=== PATIENT | female | born 1960 | race Caucasian/White ===

== ENCOUNTER 2017-10-31 06:08 | Inpatient (IN) ==
[2017-10-28 11:23] LABS: Basophils # 0.1 10*3/uL (0.0-0.2); Basophils % 0.7 % (0.0-0.8); Eosinophils # 0.2 10*3/uL (0.0-0.87); Eosinophils % 3.1 % (0.00-10.9); Hematocrit 36.3 VOL% (35.7-47.0); Hemoglobin 11.8 GM/DL (12.0-16.0); Immature Granulocytes % 0.7 %; Immature Granulocytes Absolute 0.05 #; Lymphocytes # 2.3 10*3/uL (1.4-4.0); Lymphocytes % 31.3 % (21.3-54.2); Mean Corpuscular HGB Conc 32.5 GM/DL (32-36); Mean Corpuscular Hemoglobin 29 PG (27-34); Mean Corpuscular Volume 89.9 FL (87-102); Monocytes # 0.5 10*3/uL (0.11-0.8); Monocytes % 6.1 % (1.7-12.7); Neutrophils # 4.3 10*3/uL (1.4-7.4); Neutrophils % 58.1 % (38.7-73.9); Platelet Count 304 T/CUMM (130-400); Red Blood Count 4.04 MC/CUMM (3.8-5.5); Red Cell Distribution Width 12.2 % (9.3-17.3); White Blood Count 7.4 T/CUMM (4-12)
[2017-10-28 11:25] LABS: Apearance,Urine CLEAR (Clear); Bilirubin,Urine Negative (Negative); Blood, Urine Negative (Negative); Glucose,Urine (UA) Negative (Negative); Hyaline Casts,Urine 4 /LPF (0-3); Ketones,Urine 5 mg/dL (Negative); Mucus,Urine Occasional /LPF (Occasional); Nitrite,Urine Negative (Negative); Protein,Urine Negative; RBC,Urine 3 /HPF (0-4); Squamous Epithelial Cell,Urine Occasional /HPF (0-10); Urine Color Yellow (Yellow); Urine Specific Gravity 1.015 (1.001-1.035); WBC,Urine <1 /HPF (0-6)
[2017-10-28 11:32] LABS: INR 0.9; PT Patient Result 9.9 SECS; Partial Thromboplastin Time 27.5 SECS (0-40)
[2017-10-28 11:53] LABS: Albumin 3.8 G/DL (3.4-5.0); Bilirubin,Total 0.4 MG/DL (0.2-1.0); Calcium 8.9 MG/DL (8.5-10.1); Osmolality,Calculated 272.8 MOS/KG (273-304); Total Protein 6.9 G/DL (6.4-8.3)
[~2017-10-31 06:08] MED LIST: DIAZEPAM 5 MG TABLET PO ONE; FAMOTIDINE 20 MG TABLET PO ONE; IPRATROPIUM 500 MCG/2.5 ML NEB RESP TX ONE; VANCOMYCIN INJ 1,000 MG in SODIUM CHLORIDE 0.9% 250 ML IV ONE; ceFAZolin 1,000 MG in SYRINGE 1 EACH IV ONE
[2017-10-31] MEDS ORDERED: DIAZEPAM 5 MG TABLET ONE (06:30)
[2017-10-31] MEDS ORDERED: VANCOMYCIN 1,000 MG VIAL ONE (06:30)
[2017-10-31] MEDS ORDERED: ceFAZolin 1,000 MG VIAL ONE (06:30)
[2017-10-31] MEDS ORDERED: FAMOTIDINE 20 MG TABLET ONE (06:31)
[2017-10-31] MEDS ORDERED: BACITRACIN OINT 0.9 GM PACK TOP ONE (06:39)
[2017-10-31] MEDS ORDERED: TRANEXAMIC ACID 1,000 MG/10 ML VIAL IV ONE (06:40)
[2017-10-31] MEDS ORDERED: LACTATED RINGERS 1,000 ML IV SCH (07:00)
[2017-10-31] MEDS ORDERED: ALBUTEROL 2.5 MG/3 ML NEB RESP TX PRN (08:49)
[2017-10-31] MEDS ORDERED: SIMETHICONE 125 MG PO PRN (08:49)
[2017-10-31] MEDS ORDERED: oxyCODONE IR 5 MG TABLET PO PRN (08:50)
[2017-10-31] MEDS ORDERED: MAGNESIUM HYDROXIDE SUSP 30 ML UDCUP PO PRN (08:50)
[2017-10-31] MEDS ORDERED: HYDROmorphone 2 MG/1 ML VIAL IV PRN (08:50)
[2017-10-31] MEDS ORDERED: diphenhydrAMINE CAP 25 MG CAPSULE PO PRN (08:50)
[2017-10-31] MEDS ORDERED: ONDANSETRON 4 MG/2 ML VIAL IV PRN (08:50)
[2017-10-31] MEDS ORDERED: [UNRECOGNIZED DRUG - OTHER] PO SCH (09:00)
[2017-10-31] MEDS ORDERED: AMPHETAMINE PO SCH (09:00)
[2017-10-31] MEDS ORDERED: ASCORBATE CALCIUM PO SCH (09:00)
[2017-10-31] MEDS ORDERED: BIOFLAVONOID PO SCH (09:00)
[2017-10-31] MEDS ORDERED: DIGESTIVE ADVANTAGE PO SCH (09:00)
[2017-10-31] MEDS ORDERED: DEXTROAMPHETAMINE PO SCH (09:00)
[2017-10-31 09:07] LABS: Apearance,Urine CLEAR (Clear); Bilirubin,Urine Negative (Negative); Blood, Urine Negative (Negative); Glucose,Urine (UA) Negative (Negative); Ketones,Urine Negative (Negative); Nitrite,Urine Negative (Negative); Protein,Urine Negative; RBC,Urine 2 /HPF (0-4); Urine Color Yellow (Yellow); Urine Urobilinogen < 2.0 EU/DL (0.2-1.0); WBC,Urine <1 /HPF (0-6)
[2017-10-31] MEDS ORDERED: INFLUENZA VIRUS VACCINE 0.5 ML SYRINGE IM ONE (10:21)
[2017-10-31] MEDS: KETOROLAC 30 MG/1 ML VIAL IV SCH ×3 (11:18→22:49)
[2017-10-31] MEDS: HYDROmorphone 2 MG/1 ML VIAL IV PRN ×3 (11:19→20:53)
[2017-10-31] MEDS: FLUTICASONE 50 MCG NASAL SPRAY 16 GM BOTTLE BOTH NARES SCH ×2 (11:25→17:08)
[2017-10-31] MEDS: cycloSPORINE OPH EMUL 1 VIAL BOTH EYES SCH (11:26)
[2017-10-31] MEDS: GABAPENTIN 300 MG CAPSULE PO SCH ×2 (11:34→20:54)
[2017-10-31] MEDS: DOCUSATE SODIUM 100 MG CAPSULE PO SCH ×2 (11:34→20:54)
[2017-10-31] MEDS: PANTOPRAZOLE 40 MG TABLET PO SCH (11:34)
[2017-10-31] MEDS: FLUoxetine 20 MG CAPSULE PO SCH (11:34)
[2017-10-31] MEDS ORDERED: MIDAZOLAM 2 MG/2 ML VIAL ONE (12:02)
[2017-10-31] MEDS ORDERED: PROPOFOL 200 MG/20 ML VIAL IV ONE (12:02)
[2017-10-31] MEDS ORDERED: fentaNYL 100 MCG/2 ML VIAL ONE (12:03)
[2017-10-31] MEDS ORDERED: ONDANSETRON 4 MG/2 ML VIAL ONE (12:03)
[2017-10-31] MEDS: LACTATED RINGERS 1,000 ML IV SCH ×2 (13:06→19:07)
[2017-10-31] MEDS: ACETAMINOPHEN 500 MG TABLET PO SCH ×2 (15:42→20:54)
[2017-10-31] MEDS: SULFAMETHOX/TRIMETHOPRIM 800-160 MG TABLET PO SCH ×2 (15:43→20:54)
[2017-10-31] MEDS: ceFAZolin 1,000 MG in SYRINGE 1 EACH IV SCH ×2 (15:46→22:48)
[2017-10-31] MEDS: NYSTATIN 500,000 UNIT/5 ML UDCUP SWISH/SWAL SCH ×3 (19:50→22:48)
[2017-10-31] MEDS: ZALEPLON 5 MG CAPSULE PO PRN (22:55)
[2017-11-01] MEDS: oxyCODONE IR 5 MG TABLET PO PRN ×3 (00:15→10:15)
[2017-11-01] MEDS: HYDROmorphone 2 MG/1 ML VIAL IV PRN ×2 (01:34→15:07)
[2017-11-01] MEDS: ACETAMINOPHEN 500 MG TABLET PO SCH ×2 (01:34→10:19)
[2017-11-01 04:21] LABS: Basophils % 0.4 % (0.0-0.8); Eosinophils # 0.3 10*3/uL (0.0-0.87); Eosinophils % 4.1 % (0.00-10.9); Hematocrit 28.1 VOL% (35.7-47.0); Hemoglobin 8.7 GM/DL (12.0-16.0); Immature Granulocytes % 0.4 %; Immature Granulocytes Absolute 0.03 #; Lymphocytes # 2.4 10*3/uL (1.4-4.0); Lymphocytes % 34.1 % (21.3-54.2); Mean Corpuscular Hemoglobin 28 PG (27-34); Mean Corpuscular Volume 91.8 FL (87-102); Mean Platelet Volume 8.2 FL (9.6-12.0); Monocytes # 0.4 10*3/uL (0.11-0.8); Monocytes % 5.8 % (1.7-12.7); Neutrophils # 3.8 10*3/uL (1.4-7.4); Neutrophils % 55.2 % (38.7-73.9); Platelet Count 253 T/CUMM (130-400); Red Blood Count 3.06 MC/CUMM (3.8-5.5); Red Cell Distribution Width 12.6 % (9.3-17.3); White Blood Count 6.9 T/CUMM (4-12)
[2017-11-01 04:55] LABS: Osmolality,Calculated 282.1 MOS/KG (273-304); Potassium 4.4 MMOL/L (3.5-5.1)
[2017-11-01 05:02] LABS: Troponin I Only < 0.015 NG/ML (0.00-0.045)
[2017-11-01] MEDS: KETOROLAC 30 MG/1 ML VIAL IV SCH (05:15)
[2017-11-01] MEDS: LACTATED RINGERS 1,000 ML IV SCH (05:15)
[2017-11-01] MEDS: FONDAPARINUX 2.5 MG/0.5 ML SYRINGE SUBCUT SCH (05:15)
[2017-11-01] MEDS: SULFAMETHOX/TRIMETHOPRIM 800-160 MG TABLET PO SCH ×2 (10:20→21:46)
[2017-11-01] MEDS: DOCUSATE SODIUM 100 MG CAPSULE PO SCH ×2 (10:22→21:46)
[2017-11-01] MEDS: GABAPENTIN 300 MG CAPSULE PO SCH ×2 (10:24→21:46)
[2017-11-01] MEDS: PANTOPRAZOLE 40 MG TABLET PO SCH (10:24)
[2017-11-01] MEDS: FLUoxetine 20 MG CAPSULE PO SCH (10:25)
[2017-11-01] MEDS: NYSTATIN 500,000 UNIT/5 ML UDCUP SWISH/SWAL SCH ×4 (10:27→21:46)
[2017-11-01] MEDS: FLUTICASONE 50 MCG NASAL SPRAY 16 GM BOTTLE BOTH NARES SCH (10:27)
[2017-11-01] MEDS: cycloSPORINE OPH EMUL 1 VIAL BOTH EYES SCH (10:31)
[2017-11-01] MEDS: CELECOXIB 200 MG CAPSULE PO SCH (15:07)
[2017-11-01] MEDS: METHOCARBAMOL 750 MG TABLET PO SCH ×2 (17:13→21:46)
[2017-11-01] MEDS: ZALEPLON 5 MG CAPSULE PO PRN (21:46)
[2017-11-02] MEDS: FONDAPARINUX 2.5 MG/0.5 ML SYRINGE SUBCUT SCH (05:50)
[2017-11-02 06:21] LABS: Basophils % 0.2 % (0.0-0.8); Eosinophils # 0.3 10*3/uL (0.0-0.87); Eosinophils % 3.3 % (0.00-10.9); Hematocrit 28.9 VOL% (35.7-47.0); Hemoglobin 9.1 GM/DL (12.0-16.0); Immature Granulocytes % 0.7 %; Immature Granulocytes Absolute 0.06 #; Lymphocytes # 2.2 10*3/uL (1.4-4.0); Lymphocytes % 24.5 % (21.3-54.2); Mean Corpuscular HGB Conc 31.5 GM/DL (32-36); Mean Corpuscular Hemoglobin 29 PG (27-34); Mean Corpuscular Volume 91.5 FL (87-102); Mean Platelet Volume 8.2 FL (9.6-12.0); Monocytes # 0.5 10*3/uL (0.11-0.8); Monocytes % 6.1 % (1.7-12.7); Neutrophils # 5.8 10*3/uL (1.4-7.4); Neutrophils % 65.2 % (38.7-73.9); Platelet Count 279 T/CUMM (130-400); Red Blood Count 3.16 MC/CUMM (3.8-5.5); Red Cell Distribution Width 12.4 % (9.3-17.3); White Blood Count 8.8 T/CUMM (4-12)
[2017-11-02] MEDS: FLUoxetine 20 MG CAPSULE PO SCH (10:41)
[2017-11-02] MEDS: PANTOPRAZOLE 40 MG TABLET PO SCH (10:41)
[2017-11-02] MEDS: CELECOXIB 200 MG CAPSULE PO SCH (10:41)
[2017-11-02] MEDS: GABAPENTIN 300 MG CAPSULE PO SCH (10:42)
[2017-11-02] MEDS: METHOCARBAMOL 750 MG TABLET PO SCH (10:43)
[2017-11-02] MEDS: SULFAMETHOX/TRIMETHOPRIM 800-160 MG TABLET PO SCH (10:43)
[2017-11-02] MEDS: DOCUSATE SODIUM 100 MG CAPSULE PO SCH (10:43)
[2017-11-02] MEDS: NYSTATIN 500,000 UNIT/5 ML UDCUP SWISH/SWAL SCH (10:44)
[2017-11-02] MEDS: FLUTICASONE 50 MCG NASAL SPRAY 16 GM BOTTLE BOTH NARES SCH (10:45)
[2017-11-02] MEDS: cycloSPORINE OPH EMUL 1 VIAL BOTH EYES SCH (10:45)
[2017-11-02 11:27] VITALS: BP 115/65
== END 2017-11-02 13:32 | disposition home health service (06) | DRG 470 ==
LOC: N.SDS 06:08 → N.SDSINP 06:10 → EDSTATUS 07:30 → N.3E 08:33
PROVIDERS: ADMIT Orthopaedic Surgery; ATTEND Orthopaedic Surgery

== ENCOUNTER 2018-03-08 05:41 | Inpatient (IN) ==
[2018-03-01 11:12] LABS: Apearance,Urine CLEAR (Clear); Bilirubin,Urine Negative (Negative); Blood, Urine Negative (Negative); Glucose,Urine (UA) Negative (Negative); Ketones,Urine Negative (Negative); Mucus,Urine Occasional /LPF (Occasional); Nitrite,Urine Negative (Negative); Protein,Urine Negative; Squamous Epithelial Cell,Urine Occasional /HPF (0-10); Urine Color Straw (Yellow); Urine Specific Gravity 1.003 (1.001-1.035); Urine Urobilinogen < 2.0 EU/DL (0.2-1.0)
[2018-03-01 11:12] LABS: Basophils # 0.1 10*3/uL (0.0-0.2); Basophils % 0.9 % (0.0-0.8); Eosinophils # 0.2 10*3/uL (0.0-0.87); Eosinophils % 2.9 % (0.00-10.9); Hematocrit 36.2 VOL% (35.7-47.0); Hemoglobin 11.5 GM/DL (12.0-16.0); Immature Granulocytes % 0.3 %; Immature Granulocytes Absolute 0.02 #; Lymphocytes # 2.7 10*3/uL (1.4-4.0); Lymphocytes % 35.5 % (21.3-54.2); Mean Corpuscular HGB Conc 31.8 GM/DL (32-36); Mean Corpuscular Hemoglobin 28 PG (27-34); Mean Corpuscular Volume 86.6 FL (87-102); Mean Platelet Volume 8.4 FL (9.6-12.0); Monocytes # 0.4 10*3/uL (0.11-0.8); Monocytes % 5.5 % (1.7-12.7); Neutrophils # 4.2 10*3/uL (1.4-7.4); Neutrophils % 54.9 % (38.7-73.9); Platelet Count 297 T/CUMM (130-400); Red Blood Count 4.18 MC/CUMM (3.8-5.5); Red Cell Distribution Width 12.8 % (9.3-17.3); White Blood Count 7.7 T/CUMM (4-12)
[2018-03-01 11:19] LABS: INR 0.9; PT Patient Result 9.9 SECS; Partial Thromboplastin Time 26.2 SECS (0-40)
[2018-03-01 11:48] LABS: Albumin 3.8 G/DL (3.4-5.0); Bilirubin,Total 0.8 MG/DL (0.2-1.0); Calcium 8.9 MG/DL (8.5-10.1); Osmolality,Calculated 276.4 MOS/KG (273-304); Potassium 4.7 MMOL/L (3.5-5.1); Total Protein 6.6 G/DL (6.4-8.3)
[2018-03-08] MEDS ORDERED: VANCOMYCIN INJ 1,000 MG in SODIUM CHLORIDE 0.9% 250 ML IV ONE ×2 (06:00→18:30)
[2018-03-08] MEDS ORDERED: FAMOTIDINE 20 MG TABLET PO ONE (06:00)
[2018-03-08] MEDS ORDERED: ceFAZolin 1,000 MG in SYRINGE 1 EACH IV ONE (06:00)
[2018-03-08] MEDS ORDERED: ALBUTEROL/IPRATROPIUM 3 ML NEB RESP TX ONE (06:00)
[2018-03-08] MEDS ORDERED: DIAZEPAM 5 MG TABLET PO ONE (06:00)
[2018-03-08] MEDS ORDERED: BUPIVACAINE SPINAL 0.75% 2 ML AMP SPINAL ONE (06:20)
[2018-03-08] MEDS ORDERED: BACITRACIN OINT 0.9 GM PACK TOP ONE (06:42)
[2018-03-08] MEDS ORDERED: VANCOMYCIN 1,000 MG VIAL ONE (06:49)
[2018-03-08] MEDS ORDERED: ceFAZolin 1,000 MG VIAL ONE (06:49)
[2018-03-08] MEDS ORDERED: DIAZEPAM 5 MG TABLET ONE (06:49)
[2018-03-08] MEDS ORDERED: FAMOTIDINE 20 MG TABLET ONE (06:49)
[2018-03-08] MEDS ORDERED: TRANEXAMIC ACID 1,000 MG/10 ML VIAL ONE (06:57)
[2018-03-08] MEDS ORDERED: LACTATED RINGERS 1,000 ML IV SCH (07:00)
[2018-03-08 08:35] LABS: Apearance,Urine CLEAR (Clear); Bacteria,Urine Occasional /HPF (Few); Bilirubin,Urine Negative (Negative); Blood, Urine Negative (Negative); Glucose,Urine (UA) Negative (Negative); Ketones,Urine Negative (Negative); Mucus,Urine Occasional /LPF (Occasional); Nitrite,Urine Negative (Negative); Protein,Urine Negative; RBC,Urine 1 /HPF (0-4); Squamous Epithelial Cell,Urine Occasional /HPF (0-10); Urine Color Yellow (Yellow); Urine Specific Gravity 1.011 (1.001-1.035); Urine Urobilinogen < 2.0 EU/DL (0.2-1.0); WBC,Urine 1 /HPF (0-6)
[2018-03-08] MEDS ORDERED: SIMETHICONE CHEW 125 MG TABLET PO PRN (08:37)
[2018-03-08] MEDS ORDERED: ZALEPLON 5 MG CAPSULE PO PRN (08:37)
[2018-03-08] MEDS ORDERED: MAGNESIUM HYDROXIDE SUSP 30 ML UDCUP PO PRN (08:39)
[2018-03-08] MEDS ORDERED: oxyCODONE IR 5 MG TABLET PO PRN (08:39)
[2018-03-08] MEDS ORDERED: ONDANSETRON 4 MG/2 ML VIAL IV PRN ×2 (08:39→09:07)
[2018-03-08] MEDS ORDERED: PROPOFOL 200 MG/20 ML VIAL IV ONE (08:49)
[2018-03-08] MEDS ORDERED: SEVOFLURANE 1 UNIT/15 MINUTE INH ONE (08:49)
[2018-03-08] MEDS ORDERED: fentaNYL 100 MCG/2 ML VIAL ONE (08:49)
[2018-03-08] MEDS ORDERED: ACETAMINOPHEN 1,000 MG/100 ML VIAL IV ONE (08:51)
[2018-03-08] MEDS ORDERED: MIDAZOLAM 2 MG/2 ML VIAL ONE (08:51)
[2018-03-08] MEDS ORDERED: ROCURONIUM 100 MG/10 ML VIAL IV ONE (08:52)
[2018-03-08] MEDS ORDERED: HYDROmorphone 2 MG/1 ML VIAL ONE (08:56)
[2018-03-08] MEDS: HYDROmorphone 2 MG/1 ML VIAL IV PRN ×3 (08:57→09:11)
[2018-03-08] MEDS ORDERED: [UNRECOGNIZED DRUG - OTHER] PO SCH (09:00)
[2018-03-08] MEDS ORDERED: DEXTROAMPHETAMINE PO SCH (09:00)
[2018-03-08] MEDS ORDERED: BIOFLAVONOID PO SCH (09:00)
[2018-03-08] MEDS ORDERED: DIGESTIVE ADVANTAGE PO SCH (09:00)
[2018-03-08] MEDS ORDERED: AMPHETAMINE PO SCH (09:00)
[2018-03-08] MEDS ORDERED: ASCORBATE CALCIUM PO SCH (09:00)
[2018-03-08] MEDS: MEPERIDINE 25 MG/1 ML VIAL IV PRN ×2 (09:20→09:30)
[2018-03-08] MEDS: LACTATED RINGERS 1,000 ML IV SCH ×2 (10:00→17:03)
[2018-03-08] MEDS: KETOROLAC 30 MG/1 ML VIAL IV SCH ×3 (10:26→21:40)
[2018-03-08] MEDS: METHOCARBAMOL 750 MG TABLET PO SCH ×3 (10:37→21:39)
[2018-03-08] MEDS: GABAPENTIN 300 MG CAPSULE PO SCH ×2 (10:37→17:40)
[2018-03-08] MEDS: ASCORBIC ACID 500 MG TABLET PO SCH (11:40)
[2018-03-08] MEDS: DOCUSATE SODIUM 100 MG CAPSULE PO SCH ×2 (11:40→21:40)
[2018-03-08] MEDS: PANTOPRAZOLE 40 MG TABLET PO SCH (11:40)
[2018-03-08] MEDS: FLUTICASONE 50 MCG NASAL SPRAY 16 GM BOTTLE BOTH NARES SCH (11:40)
[2018-03-08] MEDS: cycloSPORINE OPH EMUL 1 VIAL BOTH EYES SCH (11:40)
[2018-03-08] MEDS ORDERED: ALBUTEROL 0.63 MG/3 ML NEB RESP TX PRN (12:00)
[2018-03-08] MEDS: FLUoxetine 20 MG CAPSULE PO SCH (12:03)
[2018-03-08] MEDS: MEPERIDINE 50 MG/1 ML VIAL IV PRN (12:10)
[2018-03-08] MEDS: oxyCODONE IR 5 MG TABLET PO PRN ×2 (13:45→17:40)
[2018-03-08] MEDS: ACETAMINOPHEN 500 MG TABLET PO SCH ×2 (13:45→21:39)
[2018-03-08] MEDS: ceFAZolin 1,000 MG in SYRINGE 1 EACH IV SCH ×2 (15:40→23:21)
[2018-03-08] MEDS: diphenhydrAMINE CAP 25 MG CAPSULE PO PRN (23:22)
[2018-03-09] MEDS: KETOROLAC 30 MG/1 ML VIAL IV SCH (03:54)
[2018-03-09] MEDS: ACETAMINOPHEN 500 MG TABLET PO SCH ×2 (03:55→08:56)
[2018-03-09] MEDS: FONDAPARINUX 2.5 MG/0.5 ML SYRINGE SUBCUT SCH (03:56)
[2018-03-09] MEDS: MEPERIDINE 50 MG/1 ML VIAL IV PRN ×2 (04:02→23:09)
[2018-03-09 06:46] LABS: Eosinophils # 0.1 10*3/uL (0.0-0.87); Eosinophils % 1.8 % (0.00-10.9); Hematocrit 28.7 VOL% (35.7-47.0); Hemoglobin 9.2 GM/DL (12.0-16.0); Immature Granulocytes % 0.4 %; Immature Granulocytes Absolute 0.02 #; Lymphocytes # 1.1 10*3/uL (1.4-4.0); Lymphocytes % 21.7 % (21.3-54.2); Mean Corpuscular HGB Conc 32.1 GM/DL (32-36); Mean Corpuscular Hemoglobin 27 PG (27-34); Mean Corpuscular Volume 85.4 FL (87-102); Mean Platelet Volume 8.3 FL (9.6-12.0); Monocytes # 0.2 10*3/uL (0.11-0.8); Neutrophils # 3.6 10*3/uL (1.4-7.4); Neutrophils % 72.1 % (38.7-73.9); Platelet Count 217 T/CUMM (130-400); Red Blood Count 3.36 MC/CUMM (3.8-5.5); Red Cell Distribution Width 12.8 % (9.3-17.3)
[2018-03-09 07:19] LABS: Calcium 7.6 MG/DL (8.5-10.1); Osmolality,Calculated 281.1 MOS/KG (273-304); Potassium 3.8 MMOL/L (3.5-5.1)
[2018-03-09] MEDS: LACTATED RINGERS 1,000 ML IV SCH (07:28)
[2018-03-09] MEDS: FLUTICASONE 50 MCG NASAL SPRAY 16 GM BOTTLE BOTH NARES SCH (08:56)
[2018-03-09] MEDS: FLUoxetine 20 MG CAPSULE PO SCH (08:57)
[2018-03-09] MEDS: cycloSPORINE OPH EMUL 1 VIAL BOTH EYES SCH (08:57)
[2018-03-09] MEDS: GABAPENTIN 300 MG CAPSULE PO SCH ×2 (08:57→18:31)
[2018-03-09] MEDS: DOCUSATE SODIUM 100 MG CAPSULE PO SCH ×2 (08:57→20:52)
[2018-03-09] MEDS: METHOCARBAMOL 750 MG TABLET PO SCH ×3 (08:57→20:53)
[2018-03-09] MEDS: PANTOPRAZOLE 40 MG TABLET PO SCH (08:57)
[2018-03-09] MEDS: ASCORBIC ACID 500 MG TABLET PO SCH (08:58)
[2018-03-09] MEDS ORDERED: CELECOXIB 200 MG CAPSULE PO SCH (14:40)
[2018-03-09] MEDS: diphenhydrAMINE CAP 25 MG CAPSULE PO PRN (17:29)
[2018-03-09] MEDS: oxyCODONE IR 5 MG TABLET PO PRN (20:52)
[2018-03-10] MEDS: FONDAPARINUX 2.5 MG/0.5 ML SYRINGE SUBCUT SCH (02:23)
[2018-03-10] MEDS: oxyCODONE IR 5 MG TABLET PO PRN (06:45)
[2018-03-10 06:56] LABS: Eosinophils # 0.2 10*3/uL (0.0-0.87); Eosinophils % 3.1 % (0.00-10.9); Hematocrit 27.2 VOL% (35.7-47.0); Hemoglobin 8.8 GM/DL (12.0-16.0); Immature Granulocytes % 0.3 %; Immature Granulocytes Absolute 0.02 #; Lymphocytes # 1.8 10*3/uL (1.4-4.0); Lymphocytes % 25.7 % (21.3-54.2); Mean Corpuscular HGB Conc 32.4 GM/DL (32-36); Mean Corpuscular Hemoglobin 28 PG (27-34); Mean Platelet Volume 8.6 FL (9.6-12.0); Monocytes # 0.3 10*3/uL (0.11-0.8); Monocytes % 3.7 % (1.7-12.7); Neutrophils # 4.6 10*3/uL (1.4-7.4); Neutrophils % 67.2 % (38.7-73.9); Platelet Count 234 T/CUMM (130-400); Red Cell Distribution Width 12.9 % (9.3-17.3); White Blood Count 6.8 T/CUMM (4-12)
[2018-03-10] MEDS: ASCORBIC ACID 500 MG TABLET PO SCH (08:49)
[2018-03-10] MEDS: DOCUSATE SODIUM 100 MG CAPSULE PO SCH ×2 (08:49→20:01)
[2018-03-10] MEDS: GABAPENTIN 300 MG CAPSULE PO SCH ×2 (08:49→18:18)
[2018-03-10] MEDS: FLUoxetine 20 MG CAPSULE PO SCH (08:49)
[2018-03-10] MEDS: PANTOPRAZOLE 40 MG TABLET PO SCH (08:49)
[2018-03-10] MEDS: METHOCARBAMOL 750 MG TABLET PO SCH ×3 (08:49→20:01)
[2018-03-10] MEDS: FLUTICASONE 50 MCG NASAL SPRAY 16 GM BOTTLE BOTH NARES SCH (08:50)
[2018-03-10] MEDS: cycloSPORINE OPH EMUL 1 VIAL BOTH EYES SCH (08:50)
[2018-03-10] MEDS: MEPERIDINE 50 MG/1 ML VIAL IV PRN ×3 (09:38→20:01)
[2018-03-10] MEDS ORDERED: fentaNYL 12 MCG/HR PATCH TRANSDERM SCH (14:00)
[2018-03-11] MEDS: FONDAPARINUX 2.5 MG/0.5 ML SYRINGE SUBCUT SCH (02:08)
[2018-03-11 04:22] LABS: Basophils % 0.1 % (0.0-0.8); Eosinophils # 0.3 10*3/uL (0.0-0.87); Eosinophils % 4.1 % (0.00-10.9); Hematocrit 26.4 VOL% (35.7-47.0); Hemoglobin 8.4 GM/DL (12.0-16.0); Immature Granulocytes % 0.4 %; Immature Granulocytes Absolute 0.03 #; Lymphocytes # 2.1 10*3/uL (1.4-4.0); Lymphocytes % 27.7 % (21.3-54.2); Mean Corpuscular HGB Conc 31.8 GM/DL (32-36); Mean Corpuscular Hemoglobin 27 PG (27-34); Mean Corpuscular Volume 85.7 FL (87-102); Mean Platelet Volume 8.9 FL (9.6-12.0); Monocytes # 0.4 10*3/uL (0.11-0.8); Monocytes % 5.1 % (1.7-12.7); Neutrophils # 4.7 10*3/uL (1.4-7.4); Neutrophils % 62.6 % (38.7-73.9); Platelet Count 265 T/CUMM (130-400); Red Blood Count 3.08 MC/CUMM (3.8-5.5); White Blood Count 7.5 T/CUMM (4-12)
[2018-03-11] MEDS: DOCUSATE SODIUM 100 MG CAPSULE PO SCH (08:49)
[2018-03-11] MEDS: FLUTICASONE 50 MCG NASAL SPRAY 16 GM BOTTLE BOTH NARES SCH (08:50)
[2018-03-11] MEDS: GABAPENTIN 300 MG CAPSULE PO SCH (08:51)
[2018-03-11] MEDS: FLUoxetine 20 MG CAPSULE PO SCH (08:53)
[2018-03-11] MEDS: PANTOPRAZOLE 40 MG TABLET PO SCH (08:53)
[2018-03-11] MEDS: cycloSPORINE OPH EMUL 1 VIAL BOTH EYES SCH (08:54)
[2018-03-11] MEDS: METHOCARBAMOL 750 MG TABLET PO SCH (08:54)
[2018-03-11] MEDS: ASCORBIC ACID 500 MG TABLET PO SCH (08:55)
[2018-03-11 11:07] VITALS: BP 120/66
[2018-03-19] MEDS ORDERED: CYANOCOBALAMIN 1000 MCG/1 ML VIAL IM SCH (09:00)
== END 2018-03-11 14:50 | disposition home health service (06) | DRG 470 ==
LOC: N.SDSINP 05:41 → N.3E 10:00
PROVIDERS: ADMIT Orthopaedic Surgery; ATTEND Orthopaedic Surgery

== ENCOUNTER 2022-02-23 18:50 | Observation (INO) ==
[2022-02-23] MEDS ORDERED: PIPERACILLIN/TAZOBACTAM 3,375 MG in SODIUM CHLORIDE 0.9% 100 ML IV STA (20:22)
[2022-02-23] MEDS ORDERED: ALBUTEROL/IPRATROPIUM 3 ML NEB RESP TX STA (20:22)
[2022-02-23] MEDS ORDERED: FUROSEMIDE 100 MG/10 ML VIAL IV STA (20:22)
[2022-02-23] MEDS ORDERED: methylPREDNISolone SOD SUC 125 MG/2 ML VIAL IV STA (20:22)
[2022-02-23] MEDS ORDERED: ONDANSETRON 4 MG/2 ML VIAL IV STA (20:22)
[2022-02-23] MEDS ORDERED: ALBUTEROL NEB SOLN 5 MG/ML 20 ML/BOTTLE CONT NEB SCH (20:30)
[2022-02-23] MEDS ORDERED: ALBUTEROL 2.5 MG/3 ML NEB RESP TX ONE (20:55)
[2022-02-23 21:38] LABS: Basophils % 0.4 % (0.0-0.8); Eosinophils # 0.1 10*3/uL (0.0-0.87); Hematocrit 34.5 VOL% (35.7-47.0); Hemoglobin 10.4 GM/DL (12.0-16.0); Lymphocytes # 2.6 10*3/uL (1.4-4.0); Mean Corpuscular HGB Conc 30.1 GM/DL (32-36); Mean Platelet Volume 7.8 FL (9.6-12.0); Monocytes # 0.8 10*3/uL (0.11-0.8); Monocytes % 8.2 % (1.7-12.7); Neutrophils % 63.4 % (38.7-73.9); Platelet Count 303 T/CUMM (130-400); Red Blood Count 3.75 MC/CUMM (3.8-5.5); Red Cell Distribution Width 13.5 % (9.3-17.3); White Blood Count 9.9 T/CUMM (4-12)
[2022-02-23 21:46] LABS: Urine Appearance Clear (Clear); Urine Color Yellow (Yellow)
[2022-02-23 21:47] LABS: Bilirubin,Urine Negative (Negative); Blood, Urine Negative (Negative); Glucose,Urine (UA) Negative (Negative); Ketones,Urine Negative (Negative); Nitrite,Urine Negative (Negative); Protein,Urine Negative (Negative); Urine Urobilinogen 0.2 eU/dL (<2.0); Urine pH 7.5 (4.5-8.0)
[2022-02-23 21:49] LABS: RBC,Urine 1 /HPF (0-4); Squamous Epithelial Cell,Urine Occasional /HPF (0-10)
[2022-02-23 21:49] LABS: INR 0.9; PT Patient Result 9.9 SECS (10.5-12.0); Partial Thromboplastin Time 25.4 SECS (23.8-32.1)
[2022-02-23 22:07] LABS: Albumin 3.2 G/DL (3.4-5.0); Bilirubin,Total 0.4 MG/DL (0.20-1.00); Calcium 9.1 MG/DL (8.5-10.1); Osmolality,Calculated 283.1 MOS/KG (273-304); Potassium 3.6 MMOL/L (3.5-5.1); Total Protein 6.2 G/DL (6.4-8.2)
[2022-02-23 22:12] LABS: Barbiturates Screen,Urine Negative (Negative); Benzodiazepines Screen,Urine Negative (Negative); Cannabinoid Screen,Urine Negative (Negative); Opiate Screen,Urine Negative (Negative); Phencyclidine Screen,Urine Negative (Negative)
[2022-02-23] MEDS ORDERED: ALBUTEROL/IPRATROPIUM 3 ML NEB RESP TX PRN (22:32)
[2022-02-23] MEDS ORDERED: DEXTROSE 10% 250 ML BAG IV PRN (22:33)
[2022-02-23] MEDS ORDERED: diphenhydrAMINE CAP 25 MG CAPSULE PO PRN (22:33)
[2022-02-23] MEDS ORDERED: guaiFENesin/DM ER 600-30 MG TABLET PO PRN (22:33)
[2022-02-23] MEDS ORDERED: GLUCAGON 1 MG VIAL IM PRN (22:33)
[2022-02-23] MEDS ORDERED: ONDANSETRON 4 MG/2 ML VIAL IV PRN (22:33)
[2022-02-23] MEDS ORDERED: ALBUTEROL 2.5 MG/3 ML NEB RESP TX PRN (22:33)
[2022-02-23] MEDS ORDERED: hydrALAZINE 20 MG/1 ML VIAL IV PRN (22:33)
[2022-02-23] MEDS ORDERED: NICOTINE 21 MG/24 HR PATCH TRANSDERM PRN (22:33)
[2022-02-24] MEDS: LEVOFLOXACIN INJ 750 MG/150 ML PREMIX IV SCH ×2 (01:25→23:23)
[2022-02-24] MEDS: methylPREDNISolone SOD SUC 40 MG/1 ML VIAL IV SCH ×4 (03:10→21:32)
[2022-02-24] MEDS: ACETAMINOPHEN 325 MG TABLET PO PRN ×2 (03:11→11:55)
[2022-02-24] MEDS: BACLOFEN 10 MG TABLET PO PRN ×3 (05:15→21:31)
[2022-02-24 05:43] LABS: Basophils % 0.1 % (0.0-0.8); Hematocrit 34.1 VOL% (35.7-47.0); Hemoglobin 10.5 GM/DL (12.0-16.0); Immature Granulocytes % 1.3 %; Immature Granulocytes Absolute 0.11 #; Lymphocytes # 0.4 10*3/uL (1.4-4.0); Lymphocytes % 5.2 % (21.3-54.2); Mean Corpuscular HGB Conc 30.8 GM/DL (32-36); Mean Corpuscular Volume 91.2 FL (87-102); Mean Platelet Volume 7.9 FL (9.6-12.0); Monocytes # 0.1 10*3/uL (0.11-0.8); Monocytes % 0.8 % (1.7-12.7); Neutrophils % 92.6 % (38.7-73.9); Platelet Count 308 T/CUMM (130-400); Red Blood Count 3.74 MC/CUMM (3.8-5.5); Red Cell Distribution Width 13.4 % (9.3-17.3); White Blood Count 8.4 T/CUMM (4-12)
[2022-02-24 06:08] LABS: Lymphocytes 5 % (20-55); Platelet Estimate Normal; Total Cells Counted 100
[2022-02-24 06:11] LABS: Calcium 9.3 MG/DL (8.5-10.1); Osmolality,Calculated 277.8 MOS/KG (273-304); Potassium 3.1 MMOL/L (3.5-5.1)
[2022-02-24] MEDS: GABAPENTIN 300 MG CAPSULE PO SCH ×3 (09:07→21:32)
[2022-02-24] MEDS: FLUoxetine 20 MG CAPSULE PO SCH (09:07)
[2022-02-24] MEDS: PANTOPRAZOLE 40 MG TABLET PO SCH (09:08)
[2022-02-24] MEDS: FERROUS SULFATE 325 MG TABLET PO SCH (09:08)
[2022-02-24] MEDS: POTASSIUM CHLORIDE 20 MEQ TABLET PO SCH (09:08)
[2022-02-24] MEDS: HEPARIN 5,000 UNIT/1 ML VIAL SUBCUT SCH ×2 (09:08→21:35)
[2022-02-24] MEDS: FUROSEMIDE 20 MG TABLET PO SCH ×2 (09:08→15:11)
[2022-02-24] MEDS: BUDESONIDE/FORMOTEROL 160-4.5 INHALER 6 GM INH SCH ×2 (11:03→21:31)
[2022-02-24] MEDS: ALBUTEROL 2.5 MG/3 ML NEB RESP TX SCH ×3 (11:30→19:53)
[2022-02-24] MEDS: ZALEPLON 5 MG CAPSULE PO PRN (21:31)
[2022-02-24] MEDS: traZODone 50 MG TABLET PO SCH (21:32)
[2022-02-25] MEDS: ALBUTEROL 2.5 MG/3 ML NEB RESP TX SCH ×4 (01:32→19:06)
[2022-02-25] MEDS: methylPREDNISolone SOD SUC 40 MG/1 ML VIAL IV SCH ×2 (03:18→08:29)
[2022-02-25] MEDS: ACETAMINOPHEN 325 MG TABLET PO PRN (03:21)
[2022-02-25 06:28] LABS: Basophils % 0.1 % (0.0-0.8); Hematocrit 32.8 VOL% (35.7-47.0); Hemoglobin 10.1 GM/DL (12.0-16.0); Immature Granulocytes % 0.9 %; Immature Granulocytes Absolute 0.11 #; Lymphocytes # 0.8 10*3/uL (1.4-4.0); Lymphocytes % 6.9 % (21.3-54.2); Mean Corpuscular HGB Conc 30.8 GM/DL (32-36); Mean Corpuscular Volume 90.1 FL (87-102); Monocytes # 0.3 10*3/uL (0.11-0.8); Monocytes % 2.4 % (1.7-12.7); Neutrophils % 89.7 % (38.7-73.9); Platelet Count 298 T/CUMM (130-400); Red Blood Count 3.64 MC/CUMM (3.8-5.5); Red Cell Distribution Width 13.6 % (9.3-17.3); White Blood Count 11.9 T/CUMM (4-12)
[2022-02-25 06:58] LABS: Calcium 9.2 MG/DL (8.5-10.1); Osmolality,Calculated 280.8 MOS/KG (273-304); Potassium 3.4 MMOL/L (3.5-5.1)
[2022-02-25] MEDS: HEPARIN 5,000 UNIT/1 ML VIAL SUBCUT SCH ×2 (08:29→21:26)
[2022-02-25] MEDS: GABAPENTIN 300 MG CAPSULE PO SCH ×3 (08:31→21:25)
[2022-02-25] MEDS: FLUoxetine 20 MG CAPSULE PO SCH (08:31)
[2022-02-25] MEDS: PANTOPRAZOLE 40 MG TABLET PO SCH (08:32)
[2022-02-25] MEDS: FUROSEMIDE 20 MG TABLET PO SCH ×2 (08:32→15:15)
[2022-02-25] MEDS: POTASSIUM CHLORIDE 20 MEQ TABLET PO SCH (08:32)
[2022-02-25] MEDS: FERROUS SULFATE 325 MG TABLET PO SCH (08:32)
[2022-02-25] MEDS: BUDESONIDE/FORMOTEROL 160-4.5 INHALER 6 GM INH SCH ×2 (09:15→21:26)
[2022-02-25 17:39] LABS: Arterial Base Excess iSTAT 7 MMOL/L (-2.5-2.5); Arterial Bicarbonate iSTAT 31.5 MMOL/L (20-26); Arterial O2 Saturation iSTAT 79 % (95-100); Arterial PCO2 iSTAT 45 MM HG (35-48); Arterial PO2 iSTAT 42 MM HG (80-95); Arterial Total CO2 iSTAT 33 MMO/L (23-27)
[2022-02-25] MEDS: traZODone 50 MG TABLET PO SCH (21:25)
[2022-02-25] MEDS: ZALEPLON 5 MG CAPSULE PO PRN (22:34)
[2022-02-25] MEDS: LEVOFLOXACIN INJ 750 MG/150 ML PREMIX IV SCH (23:24)
[2022-02-26] MEDS: ALBUTEROL 2.5 MG/3 ML NEB RESP TX SCH ×3 (00:31→14:40)
[2022-02-26] MEDS: BACLOFEN 10 MG TABLET PO PRN ×3 (00:54→15:59)
[2022-02-26 05:05] LABS: Basophils % 0.1 % (0.0-0.8); Hematocrit 31.3 VOL% (35.7-47.0); Hemoglobin 9.6 GM/DL (12.0-16.0); Immature Granulocytes % 0.8 %; Immature Granulocytes Absolute 0.09 #; Lymphocytes # 1.5 10*3/uL (1.4-4.0); Lymphocytes % 13.1 % (21.3-54.2); Mean Corpuscular HGB Conc 30.7 GM/DL (32-36); Mean Corpuscular Volume 91.5 FL (87-102); Mean Platelet Volume 8.1 FL (9.6-12.0); Monocytes # 0.7 10*3/uL (0.11-0.8); Monocytes % 5.9 % (1.7-12.7); Neutrophils % 80.1 % (38.7-73.9); Platelet Count 273 T/CUMM (130-400); Red Blood Count 3.42 MC/CUMM (3.8-5.5); Red Cell Distribution Width 13.9 % (9.3-17.3); White Blood Count 11.5 T/CUMM (4-12)
[2022-02-26 05:18] LABS: Calcium 8.9 MG/DL (8.5-10.1); Osmolality,Calculated 286.1 MOS/KG (273-304); Potassium 4.2 MMOL/L (3.5-5.1)
[2022-02-26] MEDS ORDERED: predniSONE 20 MG TABLET PO SCH (09:00)
[2022-02-26] MEDS: GABAPENTIN 300 MG CAPSULE PO SCH ×2 (09:35→15:59)
[2022-02-26] MEDS: FERROUS SULFATE 325 MG TABLET PO SCH (09:35)
[2022-02-26] MEDS: POTASSIUM CHLORIDE 20 MEQ TABLET PO SCH (09:36)
[2022-02-26] MEDS: PANTOPRAZOLE 40 MG TABLET PO SCH (09:36)
[2022-02-26] MEDS: FLUoxetine 20 MG CAPSULE PO SCH (09:36)
[2022-02-26] MEDS: FUROSEMIDE 20 MG TABLET PO SCH ×2 (09:36→15:59)
[2022-02-26] MEDS: HEPARIN 5,000 UNIT/1 ML VIAL SUBCUT SCH (09:41)
[2022-02-26] MEDS: BUDESONIDE/FORMOTEROL 160-4.5 INHALER 6 GM INH SCH (09:42)
[2022-02-26] MEDS ORDERED: MONTELUKAST 10 MG TABLET PO SCH (10:30)
[2022-02-26 13:48] VITALS: BP 107/46
[2022-02-27] MEDS ORDERED: LEVOFLOXACIN 750 MG TABLET PO SCH (09:00)
== END 2022-02-26 16:35 | disposition home or self-care (01) ==
LOC: EDBD → EDUNIT# → N.ED 18:50 → N.3E 18:50
PROVIDERS: ADMIT Internal Medicine; ATTEND Internal Medicine